=== PATIENT | female | born 1955 | race Caucasian/White ===

== ENCOUNTER 2016-12-02 09:48 | Emergency (ER) | payer OTHER ==
[~2016-12-02] VITALS: Ht 162.6 cm; Wt 63.0 kg
[~2016-12-02 09:48] MED LIST: AUGMENTIN 875 M1 TAB PO; AUGMENTIN 875-1 EACH PO; CALTRATE 600 +1 EACH PO; IBUPROFEN400 M1 PO; OMEPRAZOLE40 M1 PO; PRILOSEC 20MG C20 MG PO
[2016-12-02 10:02] VITALS: BP 117/72
--- NOTE | 2016-12-02 10:33 | ED NECK/BACK PAIN COMPLAINT ---
History of Present Illness General Chief Complaint: Low Back Pain/Injury Stated Complaint: LOWER BACK PAIN Source: patient, old records Exam Limitations: no limitations Vital Signs & Intake/Output Vital Signs & Intake/Output Vital Signs Date Time Temp Pulse Resp B/P Pulse O2 O2 Flow FiO2 Ox Delivery Rate 12/02 1002 97.0 75 20 117/72 98 Room Air Allergies Coded Allergies: acetaminophen (From SUDAFED PE COLD & COUGH) (Severe, JITTERY 01/16/16) dextromethorphan (From SUDAFED PE COLD & COUGH) (Severe, JITTERY 01/16/16) guaifenesin (From SUDAFED PE COLD & COUGH) (Severe, JITTERY 01/16/16) phenylephrine (From SUDAFED PE COLD & COUGH) (Severe, JITTERY 01/16/16) Uncoded Allergies: ANTIBIOTICS = PT DOESNT KNOW WHICH ONES (UNKNOWN MEDS 12/22/13) Reconcile Medications Cyclobenzaprine HCl 5 MG TABLET 1 TAB PO TIDPRN PRN PAIN Fluticasone Propionate 50 MCG/ACTUATION SPRAY.SUSP 2 SPRAY NASB DAILY ALLERGIES (Reported) Meloxicam (Mobic) 15 MG TABLET 1 TAB PO DAILY PRN PAIN Omeprazole 40 MG CAPSULE.DR 1 CAP PO DAILY GI (Reported) Triage Note: STATES SHE WAS EXERCISING ABOUT 10 DAYS AGO INJURING LEFT LOWER BACK AND RIGHT RIBS. PT ALSO STATES HER RIGHT SIDE IS PAINFUL. STATES PAIN HAS BEEN GETTING WORSE. HAS TAKEN ADVIL FOR PAIN WITHOUT RELIEF Triage Nurses Notes Reviewed? yes Onset: Gradual Duration: day(s): (10), constant, waxing and waning Timing: recent history Quality/Severity: mild, ACHING, STIFFNESS Radiation: buttocks Context: S/P PLANKS Method of Injury: unknown Modifying Factors: movement, rest Associated Symptoms: DENIES HPI: 61-year-old female with history of GERD presents complaining of lower left-sided AND right sided back pain for the past 10 days which she states came on immediately after attempting to do planks with her son and was stretching. The patient denies any other known injury or trauma. She denies pain with inspiration. The pain is worse with palpation and movement. She denies any urinary symptoms dysuria urgency frequency hematuria abdominal pain nausea vomiting diarrhea. No fever no chills. She's been taking Advil without improvement. There are no other modifying factors or associated symptoms otherwise. (SPENCER ABRAMS) Past History Travel History Traveled to [place] past 21 day No Medical History Any Pertinent Medical History? 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 Aunt (Breast cancer). uncle (prostate cancer). Hx Contributory? No (SPENCER ABRAMS) Review of Systems Review of Systems Constitutional: Reports: see HPI. All Other Systems: Reviewed and Negative Comments Review of systems: See HPI, All other systems negative. Constitutional, no chills no fever, no malaise HEENT: No visual changes no sore throat no congestion, Cardiovascular: No chest pain , no palpitation Skin, no rashes, no change in skin Respiratory: No dyspnea no cough no sputum no hemoptysis GI: No nausea no vomiting, no diarrhea : No dysuria No hematuria, Muscle skeletal: No joint pain, no joint swelling, back pain, no neck pain, Neurologic: No numbness no confusion, no headache Psych: No stress Heme/endocrine: No bruising no bleeding Immunology: No lymphadenopathy, (SPENCER ABRAMS) Physical Exam Physical Exam General Appearance: well developed/nourished, no apparent distress, alert, awake Neck: normal inspection, supple Comments: Well-developed well-nourished person in no acute distress HEENT: Normal EENT exam; PERRL, EOMI, HEAD is atraumatic. moist mucous membranes. Neck: Supple, normal range of motion Back: Bilateral sided paralumbar muscle tenderness on patient on midline tenderness no CVA tenderness. Full range of motion Cardiovascular: Regular rate and rhythms no murmurs rubs Respiratory: Chest nontender.There were no bony deformities, no asymmetry. No respiratory distress. Patient speaking in full complete sentences. Breath sounds clear to auscultation bilaterally: NO W/R/R Abdomen: Soft, nontender nondistended, no appreciable organomegaly. Normal bowel sounds. No rebound/guarding, Extremity: No edema, full range of motion of extremities Neuro: Alert oriented x3, motor sensory normal, There were no obvious focal neurologic abnormalities. Skin: No appreciable rash on exposed skin, skin is warm and dry. Psych: Mood and affect is normal, memory and judgment is normal. (SPENCER ABRAMS) Progress Differential Diagnosis: herniated disc, myofascial strain, pyelo/UTI, sciatica, spinal cord inj, T/L spine injury, ureterolithiasis Plan of Care: Orders Procedure Date/time Status URINALYSIS 12/02 1018 Complete Laboratory Tests 12/02/16 1023: Urine Color YEL, Urine Clarity CLEAR, Urine pH 7.0, Ur Specific [place] 1.010, Urine Protein NEG, Urine Ketones NEG, Urine Nitrite NEG, Urine Bilirubin NEG, Urine Urobilinogen 0.2, Ur Leukocyte Esterase NEG, Ur Microscopic EXAM NOT REQUIRED, Urine Hemoglobin NEG, Urine Glucose NEG There is no trauma or injury imaging was deferred as discussed with her UA I do not believe the patient requires any further workup at this time advised, prescription for Mobic and Flexeril provided. She feels comfortable with this plan and she will return anytime sooner with any concerns clear for discharge (SPENCER ABRAMS) Departure Departure Time of Disposition: 1055 Disposition: HOME OR SELF CARE Condition: Stable Clinical Impression Primary Impression: Muscle strain Referrals: MALI HUERTA DO (PCP/Family) Additional Instructions: MOBIC DIRECTED, FLEXERIL NEEDED. TYLENOL EVERY 8 HOURS. THESE 2 PRESCRIPTIONS WERE SENT TO [facility] [place]. HEATING PADS NEEDED. RETURN WITH ANY CONCERNS Departure Forms: Customer Survey General Discharge Information Prescriptions: Current Visit Scripts Meloxicam (Mobic) 1 TAB PO DAILY PRN PAIN #10 TAB Cyclobenzaprine HCl 1 TAB PO TIDPRN PRN PAIN #12 TAB (SPENCER ABRAMS) PA/GENERATION MECHANIC HELPER Co-Sign Statement Statement: ED Attending supervision documentation- x I saw and evaluated the patient. I have also reviewed all the pertinent lab results and diagnostic results. I agree with the findings and the plan of care as documented in the PA's/GENERATION MECHANIC HELPER's documentation. [] I have reviewed the ED Record and agree with the PA's/GENERATION MECHANIC HELPER's documentation. [] Additions or exceptions (if any) to the PAs/GENERATION MECHANIC HELPER's note and plan are summarized below: [] (ALFONSO BEAL,KAUSHIK)
[2016-12-02] MEDS ORDERED: FLUTICASONE PRO16 GM NASB (10:50)
[2016-12-02] MEDS ORDERED: CYCLOBENZAPRINE5 M2 PO (10:56)
[2016-12-02] MEDS ORDERED: MOBIC15 M1 PO (10:56)
== END 2016-12-02 11:06 ==
LOC: ERH 09:48
DX: S39.012A Strain of muscle, fascia and tendon of lower back, initial encounter (principal); X50.9XXA Other and unspecified overexertion or strenuous movements or postures, initial encounter; Y93.B9 Activity, other involving muscle strengthening exercises; Y92.9 Unspecified place or not applicable
CPT/HCPCS: 81003